=== PATIENT | male | born 1970 | race Caucasian/White ===

== ENCOUNTER 2024-05-19 16:55 | Emergency (ER) | payer BC, SELFPAY ==
--- NOTE | ~2024-05-19 | US_ITS ---
EXAMINATION: US venous doppler UE RT DATE: 05/19/2024 19:17 INDICATION: Right upper limb pain, swelling and erythema TECHNIQUE: Grayscale images without and with compression and Doppler images of the right upper extrem ity veins were obtained. COMPARISON: None. FINDINGS: The right internal jugular vein, subclavian vein, axillary vein, brachial vein, basilic vein, cephali c vein, radial vein, and ulnar vein are patent. IMPRESSION: 1. Patent right upper extremity veins. No evidence of venous thrombosis. Reviewed, dictated and finalized at location A.
--- NOTE | ~2024-05-19 | XR_ITS ---
EXAMINATION: XR elbow RT min 3V DATE: 05/19/2024 18:37 INDICATION: Right elbow pain and swelling TECHNIQUE: Anteroposterior, two oblique and lateral views of the right elbow were obtained. COMPARISON: None. FINDINGS: Alignment is normal. No fracture or joint effusion. Mild osteoarthritis at the ulnotrochlear articula tion of the elbow joint with mild nonuniform joint space narrowing and small marginal osteophytes. No cortical erosions. Prominent soft tissue swelling posterior to the elbow and proximal forearm. IMPRESSION: 1. Mild osteoarthritis at the right elbow. No joint effusion or acute osseous abnormality. Reviewed, dictated and finalized at location A. IMPRESSION: 1. Mild osteoarthritis at the right elbow. No joint effusion or acute osseous a bnormality.
[2024-05-19 16:56] VITALS: BP 169/101; PULSE 84; RESP 16; TEMP 36.9; O2SAT 97
--- NOTE | 2024-05-19 17:07 | ED.GENADULT ---
HPI - General Adult General Chief complaint: Unspecified Stated complaint: right forearm swelling Related Data Allergies Allergy/AdvReac Type Severity Reaction Status Date / Time No Known Allergies Allergy Verified 05/19/24 16:58 Course Vital Signs Vital signs: Vital Signs Temperature 30.6 C L 05/19/24 16:56 Pulse Rate 84 05/19/24 16:56 Respiratory Rate 16 05/19/24 16:56 Blood Pressure 169/101 H 05/19/24 16:56 Pulse Oximetry 97 05/19/24 16:56 Temperature 30.6 C L 05/19/24 16:56 Pulse Rate 84 05/19/24 16:56 Respiratory Rate 16 05/19/24 16:56 Blood Pressure 169/101 H 05/19/24 16:56 Pulse Oximetry 97 05/19/24 16:56 Medical Decision Making Vital Signs Vital Signs: Vital Signs Temperature 30.6 C L 05/19/24 16:56 Pulse Rate 84 05/19/24 16:56 Respiratory Rate 16 05/19/24 16:56 Blood Pressure 169/101 H 05/19/24 16:56 Pulse Oximetry 97 05/19/24 16:56 Temperature 30.6 C L 05/19/24 16:56 Pulse Rate 84 05/19/24 16:56 Respiratory Rate 16 05/19/24 16:56 Blood Pressure 169/101 H 05/19/24 16:56 Pulse Oximetry 97 05/19/24 16:56 Discharge Plan Discharge Follow-up/Referrals: PHYSICIAN,BUSINESS ASSOCIATE [Primary Care Provider] -
[2024-05-19 18:03] VITALS: BP 154/115; PULSE 71; RESP 16; TEMP 36.9; O2SAT 96
--- NOTE | 2024-05-19 18:31 | ED.GENADULT ---
HPI - General Adult General Chief complaint: Unspecified Stated complaint: right forearm swelling Time Seen by Provider: 05/19/24 18:01 Source: patient Mode of arrival: ambulatory Limitations: no limitations History of Present Illness HPI narrative: patient is a 53-year-old male who presents the ED with report of right forearm and elbow pain/ swelling. Patient reports having pain to his right elbow and right proximal forearm for the last 3 days. States he has noticed swelling and redness to his elbow and forearm over the last few days. He has good range of motion of his elbow still. He denies any known fevers, but does comment on night sweats over the last few nights. Reports history of cellulitis in his right leg several years ago which he states felt similar. Denies any injury, numbness. Related Data Allergies Allergy/AdvReac Type Severity Reaction Status Date / Time No Known Allergies Allergy Verified 05/19/24 18:09 Review of Systems Review of Systems: All systems reviewed & are unremarkable except as noted in HPI. All systems reviewed & are unremarkable except as noted in HPI and below Exam Narrative: GENERAL: Well appearing, well-nourished, non-toxic, in no acute distress. HEAD: Normocephalic, atraumatic. RESPIRATORY: Airway patent, respirations nonlabored. CARDIOVASCULAR: Regular rate and rhythm without murmurs, rubs, or gallops. radial pulses easily palpable. MUSCULOSKELETAL: Moves all extremities. No gross deformities. Full range of motion of right elbow without significant discomfort reported. Mild fullness over right olecranon with focal tenderness along lateral epicondyle. Mild swelling and erythema noted to elbow/olecranon region, extending to proximal forearm and distal upper arm. Warmth present. Sensation is intact. No wounds, pustules, ulcers. SKIN: Warm, dry, normal color. NEURO: A&O X3. Speech clear. PSYCHIATRIC: Appropriate mood and affect. Normal interaction. Course Vital Signs Vital signs: Vital Signs Temperature 98.4 F 05/19/24 16:56 Pulse Rate 84 05/19/24 16:56 Respiratory Rate 16 05/19/24 16:56 Blood Pressure 169/101 H 05/19/24 16:56 Pulse Oximetry 97 05/19/24 16:56 Temperature 98.5 F 05/19/24 20:38 Pulse Rate 67 05/19/24 20:38 Respiratory Rate 15 05/19/24 20:38 Blood Pressure 137/74 05/19/24 20:38 Pulse Oximetry 100 05/19/24 20:38 Oxygen Delivery Room Air 05/19/24 18:03 Medical Decision Making [facility] Narrative Medical decision making narrative: Patient presented to ED with several day history of pain, swelling, redness to right elbow/ forearm. Vital signs are stable upon arrival. Patient afebrile. Exam concerning for possible infected olecranon bursitis. Full nonpainful range of motion of elbow, low suspicion for septic joint at this time. Will obtain lab and imaging to further evaluate. X-ray of right elbow without joint effusion. Does show soft tissue swelling. Again reinforces likelihood against septic joint. Laboratory studies are unremarkable. No leukocytosis. Inflammatory markers are within normal range. Venous Doppler ultrasound was also obtained and no DVT within the right upper extremity. Patient will be discharged on antibiotics for cellulitis/potential infected bursitis. Will treat with Bactrim and Keflex per UpToDate and EMRA antibiotic guidelines. he was given strict return precautions. Recommended close follow-up with PCP for further evaluation. He agrees with plan. Discharged in stable condition. Medical Records Medical records reviewed: Yes I reviewed the external patient's medical records. Vital Signs Vital Signs: Vital Signs Temperature 98.4 F 05/19/24 16:56 Pulse Rate 84 05/19/24 16:56 Respiratory Rate 16 05/19/24 16:56 Blood Pressure 169/101 H 05/19/24 16:56 Pulse Oximetry 97 05/19/24 16:56 Temperature 98.5 F 05/19/24 20:38 Pulse Rate 67 05/19/24 20:38 Respi
[2024-05-19 18:45] LABS: Basophils Absolute Auto 0.1 K/mm3 (0.0-0.1); Basophils Percent Auto 1.1 % (0.2-1.2); Eosinophils Absolute Auto 0.4 K/mm3 (0-0.3); Eosinophils Percent Auto 4.3 % (0-4.4); Hemoglobin 14.4 g/dL (14.0-18.0); Immature Granulocyte Absolute 0.03 K/mm3 (0.00-0.031); Immature Granulocyte Percent A 0.4 % (0-0.5); Lymphocytes Absolute Auto 2.33 K/mm3 (0.9-3.2); Lymphocytes Percent Auto 27.6 % (18.3-44.2); Mean Corpuscular HGB Conc 34.3 g/dl (32-36); Mean Corpuscular Hemoglobin 32.1 pg (26-34); Mean Corpuscular Volume 93.5 fl (80-100); Mean Platelet Volume 8.9 fl (7.4-10.4); Monocytes Absolute Auto 0.7 K/mm3 (0.1-0.6); Monocytes Percent Auto 7.8 % (2.6-8.5); Neutrophils Percent Auto 58.8 % (45.5-73.1); Platelet Count Result 260 k/mm3 (150-375); Red Blood Count 4.49 M/mm3 (4.6-6.20); White Blood Count 8.4 K/mm3 (4.5-10.0)
--- NOTE | 2024-05-19 18:48 | PC.NURSE ---
Report Given to Gracie Roe RN. All questioned answered by this RN.
[2024-05-19 19:05] LABS: INR 0.9; Prothrombin Time 12.6 Seconds (11.1-14.7)
[2024-05-19 19:15] LABS: Anion Gap 8 mmol/L (4-12); Blood Urea Nitrogen 18 mg/dL (9-20); CRP < 0.5 mg/dL (<1.0); Calcium 9.2 mg/dL (8.4-10.2); Carbon Dioxide 25 mmol/L (22-30); Chloride 104 mmol/L (98-107); Estimated CRCL calculation 76 ml/min; Estimated Glomerular Filt Rate > 60; Glucose 91 mg/dL (65-110); Potassium 4.2 mmol/L (3.4-5.0); Sodium 137 mmol/L (137-145)
[2024-05-19] MEDS: SULFAMETHOXAZOLE/TRIMETHOPRIM 800/160 MG DS TABLET 1 TAB PO (20:17)
[2024-05-19] MEDS: CEPHALEXIN 500 MG CAPSULE PO (20:17)
[2024-05-19 20:31] LABS: Erythrocyte Sedimentation Rate 1 mm/hr (0-20)
[2024-05-19 20:38] VITALS: BP 137/74; PULSE 67; RESP 15; TEMP 36.9; O2SAT 100
== END 2024-05-19 20:19 | disposition home or self-care (01) ==
PROVIDERS: Emergency Provider Physician Assistant
DX: M70.21 Olecranon bursitis, right elbow (principal); L03.113 Cellulitis of right upper limb
CPT/HCPCS: 36415; 73080; 80048; 85025; 85610; 85652; 85730; 86140; 93971; 99284; A9270

== ENCOUNTER 2025-08-20 11:06 | Emergency (ER) | payer BC, SELFPAY ==
--- NOTE | ~2025-08-20 | XR_ITS ---
Examination: XR shoulder RT min 2V, XR elbow RT min 3V Clinical History: pain, bicep tear Comparison: Right elbow radiographs 05/19/2024 Technique: 4 views right shoulder, 4 views right elbow Findings/impression: Right shoulder: 1. No fracture or dislocation right shoulder. 2. Mild AC joints widening. 3. Mild degenerative changes glenohumeral joint. Right elbow: 1. No fracture or dislocation. Reviewed, dictated and finalized at location R. [facility]
[2025-08-20 11:12] VITALS: BP 147/98; PULSE 84; RESP 20; TEMP 36.4; O2SAT 98
--- NOTE | 2025-08-20 11:51 | ED_ITS ---
HPI - Extremity Injury (Upper) General Chief Complaint: Extremity Injury, Upper Stated Complaint: I think my bicep is torn Time Seen by Provider: 08/20/25 11:49 Source: patient and family Mode of arrival: ambulatory Limitations: no limitations History of Present Illness HPI narrative: 55 years old white male complaining of right shoulder, right arm pain since 06/25/2025, during lifting heavy weight, working out. History of left rotator cuff injury and surgery 6 years ago. Patient believes he have the same feeling as the rotator cuff injury in the past. Patient believed that night he injured his biceps because unable to make contraction. Got worse over the last few days. Related Data Allergies Allergy/AdvReac Type Severity Reaction Status Date / Time No Known Allergies Allergy Verified 08/20/25 11:08 Review of Systems Review of Systems: All systems reviewed & are unremarkable except as noted in HPI and below Exam Narrative: General appearance: Well-developed, well-nourished Skin: Normal color Head: Normocephalic, nontraumatic Eyes: Clear conjunctiva ENT: Oropharynx normal, ears normal, nose normal Neck: Supple, nontender Chest and respiratory: Airway patent, no respiratory distress, no accessory muscle use Heart: Regular rate/rhythm Abdomen: Soft, nontender, no organomegaly, quiet bowel sounds Vascular: Normal peripheral pulses, normal capillary refill. Musculoskeletal: Diffuse tenderness of the right shoulder, limited range of motion, no deformity, diffuse tenderness of the right elbow, no deformity, limited range of motion Neurologic: Alert and oriented ?3, WIND ENERGY TECHNICIAN is normal as tested, no gross motor deficit Course Vital Signs Vital signs: Vital Signs Temperature 36.4 C 08/20/25 11:12 Pulse Rate 84 08/20/25 11:12 Respiratory Rate 20 08/20/25 11:12 Blood Pressure 147/98 H 08/20/25 11:12 Pulse Oximetry 98 08/20/25 11:12 Oxygen Delivery Room Air 08/20/25 11:12 Temperature 36.4 C 08/20/25 11:12 Pulse Rate 84 08/20/25 11:12 Respiratory Rate 20 08/20/25 11:12 Blood Pressure 147/98 H 08/20/25 11:12 Pulse Oximetry 98 08/20/25 11:12 Oxygen Delivery Room Air 08/20/25 11:12 MDM - Extremity Injury (Upper) MDM Narrative Medical decision making narrative: Patient came to the ED with right shoulder and right biceps pain the last few months X-ray of the right shoulder and right elbow showed no acute osseous abnormality Differential diagnosis sprain/strain, rotator cuff injury, partial tear of the biceps tendon. The pt was discharged to home.the pt,s condition upon discharge was fair,education was provided to the pt in reference to the final impres filippo,discharge study results,treatment,prognosis and need for follow up . Differential Diagnosis Differential diagnosis: Likely other (As above) Imaging Data My impression: X-ray of the right shoulder showed no fracture or dislocation X-ray of the right elbow showed no acute abnormality Critical Care Time Critical Care Time Critical Care Time: No Discharge Plan Discharge Clinical Impression: Pain in right shoulder Patient Disposition: Home Condition: Stable Instructions: How to Use a Sling (ED), Arm Pain (ED) Additional Instructions: Return if symptoms are worsening , call orthopedic for appointment, take Tylenol as as needed for aches and pain, continue home medications. Patient Language: Spanish Prescriptions: New diclofenac sodium 75 mg tablet,delayed release (DR/EC) 75 mg PO BID PRN (Reason: pain) Qty: 20 0RF cyclobenzaprine 10 mg tablet 10 mg PO TID PRN (Reason: muscle spasm) Qty: 20 0RF No Action tramadol 50 mg tablet 50 mg PO Q6H PRN (Reason: pain) Qty: 3 0RF sulfamethoxazole-trimethoprim [Bactrim DS] 800-160 mg tablet 1 tablet PO Q12H 7 Days Qty: 14 0RF cephalexin 500 mg capsule 500 mg PO Q6H 7 Days Qty: 28 0RF Follow-up/Referrals: Luis Alfredo Ivy MD [Physician, Orthopedics] - 08/22/25 PHYSICIAN,SHIP DESIGN TEACHER [Primary Care Provider, Internal Medicine]
[2025-08-20] MEDS: IBUPROFEN 400 MG TABLET 800 MG PO (12:48)
[2025-08-20] MEDS: ONDANSETRON HCL ODT 4 MG TABLET PO (12:48)
[2025-08-20] MEDS: HYDROmorphone HCL INJ (*CRX) 1 MG/ML SYR IM (12:50)
== END 2025-08-20 14:03 | disposition home or self-care (01) ==
PROVIDERS: Emergency Provider Emergency Medicine
DX: M25.511 Pain in right shoulder (principal)
CPT/HCPCS: 73030; 73080; 96372; 99284; A4565; A9270; J1171